=== PATIENT | female | born 1990 | race American Indian/Alaskan Native ===

== ENCOUNTER 2021-01-03 22:45 | Emergency (ER) | payer SELFPAY ==
[2021-01-03 23:54] VITALS: BP 119/34
[2021-01-03] MEDS ORDERED: ONDANSETRON 4 MG/2 ML INJ IV ONE (23:58)
[2021-01-03] MEDS ORDERED: SODIUM CHLORIDE 0.9% 1000 ML 1,000 ML IV ONE (23:58)
[2021-01-03] MEDS ORDERED: KETOROLAC 30 MG/1 ML INJ IV ONE (23:58)
[2021-01-04 00:47] LABS: Basophils % (Auto) 0.5 % (0.0-1.8); Eosinophils % (Auto) 0.1 % (0.0-4.3); Hematocrit 41.7 % (30.3-42.9); Hemoglobin 14.7 gm/dl (10.1-14.3); Lymphocytes # (Auto) 0.7 K/mm3 (1.2-5.4); Lymphocytes % (Auto) 9.9 % (13.4-35.0); Mean Corpuscular HGB Conc 35 % (30-34); Mean Corpuscular Volume 94 fl (79-97); Monocytes # (Auto) 0.4 K/mm3 (0.0-0.8); Monocytes % (Auto) 5.4 % (0.0-7.3); Platelet Count 172 K/mm3 (140-440); Red Blood Count 4.42 M/mm3 (3.65-5.03); Red Cell Distribution Width 13.4 % (13.2-15.2)
[2021-01-04 00:59] LABS: BUN/Creatinine Ratio 26; Blood Urea Nitrogen 18 mg/dL (7-17); Calcium 8.8 mg/dL (8.4-10.2); Hemolysis Index 5
[2021-01-04] MEDS ORDERED: SODIUM CHLORIDE 0.9% 1000 ML 1,000 ML IV ONE (04:53)
--- NOTE | 2021-01-04 04:59 | Emergency Department Report ---
ED Abdominal Pain HPI - General Chief Complaint: Abdominal Pain Stated Complaint: N/V/ABD CRAMPS Source: patient Mode of arrival: Ambulatory Limitations: No Limitations - History of Present Illness Initial Comments: Patient 30-year-old female who presents for bilateral lower abdominal pain for the past 3 days. With nausea vomiting. Patient denies fevers or chills. Patient denies dysuria frequency or urgency. There is been no hematuria. Patient states no history of renal stones. Patient advises last menstrual cycle 2 weeks ago she is not as she does not have sex with men. Patient denies smoking or other substance. Symptoms are exacerbated by p.o. intake. S ymptoms are relieved by nothing tried. Symptoms are rated at 4/10 at this time. Improved after medications given in ED. MD Complaint: abdominal pain Severity scale (0 -10): 9 - Related Data Previous Rx's Medication Instructions Recorded Last Taken Type Dicyclomine [Bentyl] 10 mg PO QID PRN #15 capsule 01/04/21 Unknown Rx Ondansetron [Zofran Odt] 4 mg PO Q8HR #12 tab.rapdis 01/04/21 Unknown Rx Allergies Allergy/AdvReac Type Severity Reaction Status Date / Time No Known Allergies Allergy Verified 12/21/19 20:09 ED Review of Systems ROS: Stated complaint: N/V/ABD CRAMPS Other details as noted in HPI Constitutional: denies: chills, fever Eyes: denies: eye pain, eye discharge, vision change ENT: denies: ear pain, throat pain Respiratory: denies: cough, shortness of breath, wheezing Cardiovascular: denies: chest pain, palpitations Endocrine: no symptoms reported Gastrointestinal: abdominal pain, nausea, vomiting. denies: diarrhea, co nstipation, hematemesis, melena Genitourinary: denies: urgency, dysuria, frequency, hematuria, discharge, abnormal menses Musculoskeletal: denies: back pain, joint swelling, arthralgia Skin: denies: rash, lesions Neurological: denies: headache, weakness, paresthesias Psychiatric: denies: anxiety, depression Hematological/Lymphatic: as per HPI ED Past Medical Hx - Past Medical History Hx Asthma: Yes - Medications Home Medications: Home Medications Medication Instructions Recorded Confirmed Last Taken Type Dicyclomine [Bentyl] 10 mg PO QID PRN #15 capsule 01/04/21 Unknown Rx Ondansetron [Zofran Odt] 4 mg PO Q8HR #12 tab.rapdis 01/04/21 Unknown Rx ED Physical Exam - General Limitations: No Limitations General appearance: alert, in no apparent distress - Head Head exam: Present: atraumatic, normocephalic - Eye Eye exam: Present: normal appearance, EOMI Pupils: Present: normal accommodation - ENT ENT exam: Present: mucous membranes moist - Neck Neck exam: Present: normal inspection, full ROM. Absent: tenderness - Respiratory Respiratory exam: Present: normal lung sounds bilaterally. Absent: respiratory distress, wheezes, stridor, chest wall tenderness - Cardiovascular Cardiovascular Exam: Present: regular rate, normal rhythm, normal heart sounds. Absent: systolic murmur, diastolic murmur, rubs, gallop - GI/Abdominal GI/Abdominal exam: Present: tenderness (bilat lower abd ), normal bowel sounds. Absent: guarding, rebound, rigid, bruit, hernia - Rectal Rectal exam: Present: deferred - Extremities Exam Extremities exam: Present: normal inspection, full ROM. Absent: tenderness - Back Exam Back exam: Present: normal inspection, full ROM. Absent: CVA tenderness (R), CVA tenderness (L) - Neurological Exam Neurological exam: Present: alert, oriented X3, CN II-XII intact, normal gait - Psychiatric Psychiatric exam: Present: normal affect - Skin Skin exam: Present: warm, dry, intact, normal color. Absent: rash ED Course Vital Signs 01/03/21 23:47 Temperature 98.2 F Pulse Rate 77 Respiratory 18 Rate Blood Pressure 119/34 O2 Sat by Pulse 100 Oximetry ED Medical Decision Making - Lab Data Result diagrams: 01/04/21 00:16 01/04/21 00:16 Labs 01/04/21 01/04/21 01/04/21 00:16 00:16 00:16 WBC 7.5 RBC 4.42 Hgb 14.7 H Hct 41.7 MCV 94 MCH 33 H MCHC 35 H RDW 13.4 Plt Count 172 Lymph % (Auto) 9.9 L [place] % (Auto) 5.4 Eos % (Auto) 0.1 Baso % (Auto) 0.5 Lymph # (Auto) 0.7 L [place] # (Auto) 0.4 Eos # (Auto) 0.0 Baso # (Auto) 0.0 Seg Neutrophils % 84.1 H Seg Neutrophils # 6.3 Sodium 138 Potassium 4.1 Chloride 104.9 Carbon Dioxide 21 L Anion Gap 16 BUN 18 H Creatinine 0.7 Estimated GFR > 60 BUN/Creatinine Ratio 26 Glucose 82 Calcium 8.8 Amylase 46 Lipase 17 - Medical Decision Making Patient now declines urine declines imaging however states symptoms are improved, patient is tolerating p.o. intake without symptoms at this time. Patient given strict instructions to return to ED should symptoms return or worsen. Patient currently appears nontoxic well-hydrated well-nourished. Patient will be DC'd to self at this time. Patient verbalized agreement and understanding with discharge plan Critical care attestation.: If time is entered above; I have spent that time in minutes in the direct care of this critically ill patient, excluding procedure time. ED Disposition Clinical Impression: Nausea and vomiting Qualifiers: Vomiting type: unspecified Vomiting Intractability: non-intractable Qualified Code(s): R11.2 - Nausea with vomiting, unspecified Disposition: DC-01 TO HOME OR SELFCARE Is pt being admited?: No Does the pt Need Aspirin: No Condition: Stable Instructions: Abdominal Pain (ED), Nausea and Vomiting, Adult Additional Instructions: Take all medications as prescribed, hydrate as directed, follow-up with your doctor in 2 to 3 days. Return to emergency if unable to tolerate by mouth or worsening symptoms.. Prescriptions: Dicyclomine [Bentyl] 10 mg PO QID PRN #15 capsule PRN Reason: abdominal spasm Ondansetron [Zofran Odt] 4 mg PO Q8HR #12 tab.rapdis Referrals: BERNADETTE NARANJO MD [Primary Care Provider] - 3-5 Days ABY FELTON MD [Staff Physician] - 3-5 Days Forms: Work/School Release Form(ED) Time of Disposition: 06:30
== END 2021-01-04 06:30 | disposition home or self-care (01) ==
LOC: ED 22:45
DX: R11.2 Nausea with vomiting, unspecified (principal); J45.909 Unspecified asthma, uncomplicated; Z79.899 Other long term (current) drug therapy
CPT/HCPCS: 36415; 80048; 82150; 83690; 85025; 96361; 96374; 96375; 99283; J1885; J2405; J7030